=== PATIENT | female | born 1990 | race Caucasian/White ===

== ENCOUNTER 2017-01-13 16:01 | Outpatient (CLI) | payer OTHER ==
[~2017-01-13] VITALS: Ht 162.6 cm; Wt 74.8 kg
[2017-01-13 16:28] VITALS: BP 117/62
[2017-01-13] MEDS ORDERED: PRENATAL TABLE1 EAC3 PO (16:40)
== END 2017-01-13 19:08 | disposition home or self-care (01) ==
LOC: LDRP-OP 16:01 → 2WEST 16:03 → LDRP-OP 02-25 12:30
DX: O47.9 False labor, unspecified (principal); Z3A.00 Weeks of gestation of pregnancy not specified
CPT/HCPCS: 59025; G0378

== ENCOUNTER 2017-01-21 23:51 | Outpatient (CLI) | payer OTHER ==
[~2017-01-21] VITALS: Ht 162.6 cm; Wt 76.4 kg
[~2017-01-21 23:51] MED LIST: PRENATAL TABLE1 EAC3 PO
[2017-01-22 00:25] VITALS: BP 118/68
[2017-01-22 01:48] VITALS: BP 110/67
[2017-01-22 02:52] VITALS: BP 109/65
== END 2017-01-22 03:59 | disposition home or self-care (01) ==
LOC: LDRP-OP 23:51 → 2WEST 23:52 → LDRP-OP 02-25 21:47
DX: O47.1 False labor at or after 37 completed weeks of gestation (principal); Z3A.39 39 weeks gestation of pregnancy
CPT/HCPCS: 59025; G0378

== ENCOUNTER 2017-01-27 07:16 | Inpatient (IN) | payer OTHER ==
[~2017-01-27] VITALS: Ht 162.6 cm; Wt 75.8 kg
[2017-01-27] VITALS (21 sets, daily range): BP systolic 102–125; BP diastolic 55–75
[2017-01-27 08:54] LABS: EOSINOPHIL (%) 0.8 % (0-5); EOSINOPHIL COUNT 0.1 K/uL (0-0.3); IMMATURE GRANULOCYTE (%) 0.4 % (0.0-0.7); INSTRUMENT ABS NEUTROPHIL CT 4.4 K/uL; MCH 28.5 PG (29.0-34.0); MCHC 32.4 G/DL (30.0-36.0); MEAN PLAT.VOLUME 10.4 uM^3 (9.5-12.4); MONOCYTE (%) 9.6 % (3-12); MONOCYTE COUNT 0.7 K/uL (0-0.8); NEUTROPHIL COUNT 4.4 K/uL (1.8-6.4); PLATELET COUNT 211 K/uL (156-360); RBC DIS.WIDTH-CV 12.4 % (11.8-14.6); RBC DIS.WIDTH-SD 39.8 % (39-53); RED BLOOD COUNT 3.75 M/uL (3.80-5.20); WHITE BLOOD COUNT 7.2 K/uL (4.1-10.2)
[2017-01-27] MEDS ORDERED: IBUPROFEN800 MG PO (17:32)
[2017-01-28 08:14] VITALS: BP 112/67
[2017-01-28 16:00] VITALS: BP 107/65
[2017-01-29 00:01] VITALS: BP 110/75
[2017-01-29 08:24] VITALS: BP 105/54
== END 2017-01-29 12:20 | disposition home or self-care (01) | DRG 775 ==
LOC: LDRP-OP 07:16 → 2WEST 07:17 → LDRP-OP 08:54 → 2WEST 17:07 → LDRP-OP 02-25 04:04
PROVIDERS: Advanced Practice Midwife
PROC: 10907ZC Drainage of Amniotic Fluid, Therapeutic from Products of Conception, Via Natural or Artificial Opening (ICD-10-PCS; principal; 2017-01-27)
PROC: 3E033VJ Introduction of Other Hormone into Peripheral Vein, Percutaneous Approach (ICD-10-PCS; 2017-01-27)
PROC: 10E0XZZ Delivery of Products of Conception, External Approach (ICD-10-PCS; 2017-01-27)
PROC: 3E0S3BZ Introduction of Anesthetic Agent into Epidural Space, Percutaneous Approach (ICD-10-PCS; 2017-01-27)
DX: O99.284 Endocrine, nutritional and metabolic diseases complicating childbirth (principal); E04.1 Nontoxic single thyroid nodule; Z37.0 Single live birth; Z3A.40 40 weeks gestation of pregnancy; Z87.891 Personal history of nicotine dependence
CPT/HCPCS: 85025; C1755; J3010; J7120